=== PATIENT | male | born 1945 | race Caucasian/White ===

== ENCOUNTER 2020-12-18 17:34 | Inpatient (IN) | payer BC, OTHER ==
[~2020-12-18] VITALS: Ht 180.3 cm; Wt 83.2 kg
[2020-12-18] VITALS (13 sets, daily range): BP systolic 87–142; BP diastolic 46–91
--- NOTE | ~2020-12-18 | HC ---
[facility] [place] [address] CONSULTATION Name: HERO GOODWIN Room #: 214-P ADM IN M.R.#: [id number] Admission: 12/18/20 Attend Phys: Rajesh Becker MD Discharge: Date of : 45 Report #: [id number] THIS REPORT FOR: cc: Daniel Wiley MD, Alexander C. MD Smithson,Ricardo Carrillo MD ~ DOC #: [id number] Ricardo Kilpatrick MD DATE OF SERVICE: 12/26/2020 HISTORY OF PRESENT ILLNESS: The patient is a 75-year-old male who had out of hospital cardiac arrest with pulseless, successful resuscitation, was intubated in the field. He has been admitted. 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 He has had problems with tissue necrosis and underwent an I and D by wound care with Urology following as well. He has been able to be extubated. Cardiology was closely involved. He has been diagnosed with a non-Q-wave [place], troponin elevation, status post CPR and defibrillation. Paroxysmal atrial fibrillation, back in atrial fibrillation, unsuccessful AFib ablation. He is transitioning from IV to oral amiodarone. Anticipation is underway for coronary angiography possibly Thursday. We have been consulted from a rehabilitation perspective. PAST MEDICAL HISTORY: Coronary artery disease, chronic diastolic heart failure, paroxysmal atrial fibrillation, hyperlipidemia. MEDICATIONS: Please see the full medication listing. HABITS: As noted. SOCIAL HISTORY: Lives with spouse in [place], 2 steps in. 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 Son here in [place] and daughter apparently lives out of [place], [place]. The patient tends to spend the summer in [place]. is noted to have decreased short-term memory issues per the son. REVIEW OF SYSTEMS: No current complaints of chest pain, shortness of breath or abdominal discomfort. ALLERGIES: No known drug allergies. PHYSICAL EXAMINATION: GENERAL: A 75-year-old male, in no obvious distress. The patient is alert. VITAL SIGNS: Last recorded temperature 97.9, pulse 80, respirations 18, blood pressure 107/77. HEENT: Appeared to be benign. NEUROLOGIC: Cranial nerves are grossly intact. Facies [place] [address] CONSULTATION Name: HERO GOODWIN Room #: 214-P [facility] IN M.R.#: [id number] Admission: 12/18/20 Attend Phys: Rajesh Becker MD Discharge: Date of : 45 Report #: [id number] currently on nasal prong O2 5 liters. His scrotum is dressed with a large dressing in place and he has an indwelling Newman catheter. He has functional range of motion of the upper extremity, strength is grade 4-/5. He is moving lower extremities with some discomfort with his scrotal dressing, is probably a grade 3+/5 to 4-/5. There is some delay in his cognitive processing, but he does follow basic 1-step commands. Functionally, he is mod assist sit to stand, gait with 6 steps mod assist. ASSESSMENT: A 75-year-old white male with the following problem list: 1. Toxic metabolic encephalopathy/probable hypoxic encephalopathy. 2. Out of hospital cardiac arrest, pulseless with successful resuscitation. 3. Acute hypoxic respiratory failure, has been extubated on high dose nasal prong O2. 4. Non-Q-wave myocardial infarction. 5. Paroxysmal atrial fibrillation with unsuccessful atrial fibrillation ablation. 6. Status post right orchiectomy for spermatic cord liposarcoma, he is status post subsequent wound care incision and drainage. 7. Sepsis. PLAN: Note, consideration for coronary angiography. Transitioning from IV to oral amiodarone. Recurrent atrial fibrillation as noted. He does have supportive family that are here and he is willing to work in therapies to try to gradually improve independence. He is a good candidate for an acute in-hospital inpatient rehabilitation stay when medically stabilized, bed available and insurance precertification obtained. We will continue to follow with you. Ricardo Kilpatrick MD DGS/ALL By: [id number] Ricardo Kilpatrick MD /nt
--- NOTE | ~2020-12-18 | EMS ---
[address] [address] EMS Patient Care Report Name: HERO GOODWIN Room #: 245-P ADM IN M.R.#: [id number] Admission: 12/18/20 Attend Phys: Rajesh Becker MD Discharge: Date of : 45 Report #: [id number] THIS REPORT FOR: //name// Report Transmitted: 12/19/2020 06:24 EMS Care Summary [facility] MED-ACT Incident [id number] @ 12/18/2020 16:50 Incident Location [address] [place] [address] [place] [address] Patient WADE GOODWIN Male, 75 Years 1945 Patient [address] [address] [place] [address] [place] [address] Patient History Other,Hypertension (HTN),Atrial Fibrillation, Patient Allergies No known allergies, Patient Medications Atorvastatin, Metoprolol, Toprol, Amiodarone, Chief Complaint Cardiac Arrest Disposition Transported No Lights/[place] Dispatch Reason Chest Pain (Non-Traumatic) Transported To [facility] Narrative Upon EMS arrival the patient was laying supine in his bed with LFD at his side. LFD stated PD had arrived on scene to find the patient on the phone, shortly after PD arrived they stated the patient went unconscious and was not breathing. PD started CPR immediately while the patient was still in bed. D [address] [address] EMS Patient Care Report Name: HERO GOODWIN Room #: 245-P ADM IN James#: [id number] Admission: 12/18/20 Attend Phys: Rajesh Becker MD Discharge: Date of : 45 Report #: [id number] arrived on scene and found the patient to have a pulse and was breathing, they re triaged critical. Approximately two minutes later the patient had several agonal respirations and went apenic. M1134 arrived at the patients side at this time, the patient was moved from the bed to the floor, CPR was immediately started and the defib pads were attached anterior/lateral, the patient was found to be in pulseless VT and was defibrillated at 200J, rhythm and pulse checks were preformed every two minutes for the duration of the CA. Compressors were changed every two minutes for the duration of the CA. The patient was ventilated via BVM with 15 lpm of O2, soon after a size 4 iGel was placed without difficulty with an EtCO2 filter attached by a LFD EMT. IV access was established, 1mg of epinephrine was administered IVP. A total of three defibrillations and one epi were administered prior to ROSC. A strong radial pulse was found and the patient was noted to be breathing spontaneously. V/S and 12 lead were obtained and transmitted to the ED, the patient was not moved for approximately five minutes to prevent an arrhythmia from occurring. The patients BG was noted to be 171mg/dL. The Giancarlo device was placed on the patient and then the tarp. The patient as moved to the cot while continuing ventilation and cardiac monitoring. The patient was carried to the cot without incident. Report was called to [facility]. Once in the back of the MICU, an additional IV was established and a drop in the patients BP was noted, 500cc of NS was administered wide open. Serial 12 leads were taken. The patient would not respond to verbal or painful stimuli, he spontaneously opened his eyes but did not track. The patients RR increase and his ventilations were assisted. He began to gag on the iGel, it was removed immediately, the patient was noted to have spontaneous but inadequate respirations, EMS continued to assist the patients ventilations via BVM. Family stated the patient had a testicle removed last Thursday and was released from the hospital several days ago. They denied the patient having any significant cardiac history. M1134 transported the patient with a LFD EMT bagging the patient en route. The patient was taken to [facility] ED room 12, he was moved to he ED bed via sheet drag without incident, report was given to nursing staff. Initial Vitals @17:11MI Suspected: true @17:30MI Suspected: false @17:11P: 128,R: 21,BP: 157/100,SpO2: 100, @17:21P: 121,R: 20,BP: 99/48,EtCO2: 29,SpO2: 99, @17:25P: 118,R: 20,BP: 137/75,EtCO2: 38,SpO2: 100, @17:29P: 118,R: 20,BP: 184/146,EtCO2: 32,SpO2: 95, @17:08P: 127,R: 19,BP: 182/116,Pain: 0/10,Temp: 97.4F,Glucose: 171,EtCO2: 36,SpO2: 100, Assessments @16:58MENTAL:Unresponsive,SKIN:Cold,Cyanotic,Pale,HEENT:Eyes: Left Pupil: 4-mm,Eyes: Right Pupil: 4-mm,LUNG SOUNDS:ABDOMEN:PELVIS//GI:EXTREMITIES:PULSE:Radial: Absent,Carotid: [facility] [address] [place] [address] EMS Patient Care Report Name: HERO GOODWIN Room #: 245-P ADM IN M.R.#: [id number] Admission: 12/18/20 Attend Phys: Rajesh Becker MD Discharge: Date of : 45 Report #: [id number] Absent,NEURO:@17:15MENTAL:SKIN:HEENT:Eyes: Left Pupil: 4-mm,Eyes: Right Pupil: 4-mm,LUNG SOUNDS:ABDOMEN:PELVIS//GI:EXTREMITIES:PULSE:Radial: 2+ Normal,NEURO: Impression Cardiac arrest Procedures @17:00Surgical Mask on PatientResponse: Unchanged@PTAResponse: ImprovedSucceeded@PTAResponse: Unchanged@16:58Response: UnchangedSucceeded@16:59Response: UnchangedFailed@17:01Response: UnchangedFailed@17:04Response: ImprovedSucceeded@16:58Oxygen FlowRate: 15 Device: Bag Valve Mask (BVM) Response: UnchangedSucceeded@17:00iGEL Complications: None,Response: UnchangedSucceeded@17:01Epinephrine 1:10 - 1 Milliliters (ml) - Intravenous (IV)Response: Improved@17:00Saline Lock 10cc (18 ga) Site: Forearm-RightResponse: UnchangedSucceeded@17:1112-Lead ECGResponse: UnchangedSucceeded@17:2812-Lead ECGResponse: UnchangedSucceeded@17:11ECG TransmittedResponse: Unchanged@17:19Normal Saline (.9% NaCl) 500cc (18 ga) Site: Forearm-LeftResponse: UnchangedSucceeded Timeline [employer],Response: ImprovedSucceeded, [employer],Response: Unchanged 16:48,Call Received 16:48,Psap Call 16:50,Dispatched 16:50,En Route 16:55,On Scene 16:56,At Patient 16:58,Oxygen FlowRate: 15 Device: Bag Valve Mask (BVM) Response: UnchangedSucceeded, 16:58,Response: UnchangedSucceeded, 16:59,Response: UnchangedFailed, 17:00,Surgical Mask on Patient,Response: Unchanged 17:00,iGEL Complications: None,,Response: UnchangedSucceeded, 17:00,Saline Lock 10cc 18 ga Site: Forearm-Right,Response: UnchangedSucceeded, 17:01,Response: UnchangedFailed, 17:01,Epinephrine 1:10 - 1 Milliliters (ml) - Intravenous (IV),Response: Improved 17:04,Response: ImprovedSucceeded, 17:08,BP: 182/116 M,PULSE: 127,RR: 19 R,SPO2: 100 Ox,ETCO2: 36 ,B,PAIN: 0,GCS: , 17:11,12-Lead ECG,Response: UnchangedSucceeded, 17:11,BP: / M,PULSE: ,RR: R,SPO2: Ox,ETCO2: ,BG: ,PAIN: ,GCS: , 17:11,BP: 157/100 M,PULSE: 128,RR: 21 R,SPO2: 100 Ox,ETCO2: ,BG: ,PAIN: ,GCS: , 17:11,ECG Transmitted,Response: Unchanged [address] [address] EMS Patient Care Report Name: HERO GOODWIN Room #: 245-P ADM IN M.R.#: [id number] Admission: 12/18/20 Attend Phys: Rajesh Becker MD Discharge: Date of : 45 Report #: [id number] 17:19,Normal Saline (.9% NaCl) 500cc 18 ga Site: Forearm-Left,Response: UnchangedSucceeded, 17:21,Depart Scene 17:21,BP: 99/48 M,PULSE: 121,RR: 20 R,SPO2: 99 Ox,ETCO2: 29 ,BG: ,PAIN: ,GCS: , 17:25,BP: 137/75 M,PULSE: 118,RR: 20 R,SPO2: 100 Ox,ETCO2: 38 ,BG: ,PAIN: ,GCS: , 17:28,12-Lead ECG,Response: UnchangedSucceeded, 17:29,BP: 184/146 M,PULSE: 118,RR: 20 R,SPO2: 95 Ox,ETCO2: 32 ,BG: ,PAIN: ,GCS: , 17:29,At Destination 17:30,BP: / M,PULSE: ,RR: R,SPO2: Ox,ETCO2: ,BG: ,PAIN: ,GCS: , 18:07,Call Closed Disclaimer v1.1 Copyright 2020 [employer] This EMS Care Summary contains data elements from the applicable legal record (which may be displayed differently). It is designed to provide pertinent information for the following purposes: continuity of care, clinical quality, and state data reporting. The complete legal record is available to ED staff and administrators of the receiving hospital in [employer] Patient Tracker. All data is provided "as is."
--- NOTE | 2020-12-18 17:38 | NUR ---
UPON ARRIVAL PT ASSIST W VENT W BAG, 1741 SUCCINYCHOLINE 80MG IV VIA R FOREARM. 1743 20G L WRIST W LAB DRAW AND BLOOD CULTURES, 174 INTUBATION 26 @ TEETH, 1746 PROPOFOL 30MG IV VIA R FOREARM, 1752 OG TUBE 65 @ LIP, 1753 XRAY IN ROOM. 1800 PROPOFOL 40MG IV VIA R FOREARM.
[2020-12-18 17:55] LABS: ABSOLUTE NEUTROPHILS 10.1 thou/uL (1.4-8.2); BASOPHILS 0.4 % (0.0-2.0); EOSINOPHILS 0.9 % (0.0-3.0); HEMATOCRIT 33.6 % (42.0-52.0); HEMOGLOBIN 11.3 gm/dL (14.0-18.0); LYMPHOCYTES 10.6 % (24.0-44.0); MCH 32.6 pg (26.0-34.0); MCHC 33.5 g/dL (28.0-37.0); MCV 97.2 fL (80.0-100.0); MONOCYTES 8.1 % (1.0-8.0); PLATELET COUNT 280 thou/uL (150-400); RBC 3.46 mil/uL (4.50-6.00); RDW 13.5 % (10.5-14.5); WBC 12.7 thou/uL (4.0-11.0)
[2020-12-18 18:04] LABS: CALCIUM 8.2 mg/dL (8.5-10.1); CREATININE 1.5 mg/dL (0.7-1.3); POTASSIUM 3.6 mmol/L (3.5-5.1)
[2020-12-18 18:06] LABS: BE(vivo) -8.4 mmol/L (-2 to +3); HCO3 17.6 mmol/L (22.0-26.0); PCO2 38.2 mmHg (35.0-45.0); PO2 81.3 mmHg (80.0-100.0); pH 7.282 (7.360-7.450); sO2 94.7 % (92.0-98.0)
[2020-12-18 18:14] LABS: ALBUMIN 2.9 g/dL (3.4-5.0); TOTAL BILIRUBIN 0.6 mg/dL (0.2-1.0); TOTAL PROTEIN 6.3 g/dL (6.4-8.2); TROPONIN-I 0.07 ng/mL (<0.06)
--- NOTE | 2020-12-18 18:20 | EKG ---
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
--- NOTE | 2020-12-18 21:20 | NUR ---
This RN spoke to the urologist instrumentation and control technician, Dr. Keys. Doctor familiar with and has seen patient recently at [facility]. Discussed patient and scrotum assessment. Orders to place bennett catheter. Physician to see patient tomorrow.
--- NOTE | 2020-12-18 21:21 | NUR ---
This RN spoke to Dr. Ryan regarding consult. Not indicated for hypothermia protocol at this time. Orders received. Physician to see patient in the morning. Will continue to monitor.
[2020-12-19] VITALS (43 sets, daily range): BP systolic 80–118; BP diastolic 43–59
--- NOTE | 2020-12-19 01:33 | NUR ---
Pt admitted 2020 and family, pt's Manuela and pt's son Thien in room with pt after pt transfered into room 245, both and son answered admission questions, pt arrived in ICU with no personal belongings and family directed to take home all belongings from the ER and they agreed, pt has surgical site, glued, on right groin area and there is a lesion on scrotum, photos taken, teaching done with family r/t medications, plan of care, falls, restraints, intubation and ventilation, visiting hours, ICU, and plans for discharge planning and they actively listened and participated. Pt pain addressed and fentanyl infusing and pt appears more comfortable at present. Pt resting in no distress.
[2020-12-19 03:03] LABS: HEMATOCRIT 30.2 % (42.0-52.0); MCH 32.3 pg (26.0-34.0); MCHC 33.1 g/dL (28.0-37.0); MCV 97.4 fL (80.0-100.0); RBC 3.09 mil/uL (4.50-6.00); RDW 13.6 % (10.5-14.5); WBC 12.2 thou/uL (4.0-11.0)
[2020-12-19 03:19] LABS: APTT 22.5 Seconds (24.5-32.8); INR 1.03; PROTIME 11.2 Seconds (10.5-12.1)
[2020-12-19 03:33] LABS: ALBUMIN 2.7 g/dL (3.4-5.0); CALCIUM 8.2 mg/dL (8.5-10.1); MAGNESIUM 2.2 mg/dL (1.8-2.4); POTASSIUM 4.4 mmol/L (3.5-5.1); TOTAL BILIRUBIN 0.5 mg/dL (0.2-1.0); TOTAL PROTEIN 5.8 g/dL (6.4-8.2)
[2020-12-19 03:35] LABS: TROPONIN-I 16.57 ng/mL (<0.06)
--- NOTE | 2020-12-19 08:50 | NUR ---
Cm assisted beatriz to found his room, vol showed her how to get to the icu. Intro to cm and dcp. Noted was anxious, frazzled and unable answer some question about dpoa/hc. Active listen and education and support for her to rest and ask for help if needed. she reported live at home, 1 step in from garage, flight stairs up to bedrooms and flight stair to basement. he independent before he went to another hospital for 3 night, that hospital over [address] . He was at [facility] then came home showered and ended up there at [facility]. 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 Daughter going to come in from [place] today. will cont following as needed for dc needs.
--- NOTE | 2020-12-19 13:00 | NUR ---
PT HAVING TEMPERATURE OF 100F. DR. KIM CALLED FOR ORDER FOR IVF MAINTENANCE AND TYLENOL. DR. KIM SAID HE WILL PUT THE ORDERS IN. REPORT GIVEN TO ENRIQUETA SALVADOR.
--- NOTE | 2020-12-19 13:17 | 2DMMODE ---
[facility] [place] [address] 2 D/M-MODE ECHOCARDIOGRAM Name: EHRO GOODWIN Room #: 245-P ADM IN M.R.#: [id number] Admission: 12/18/20 Attend Phys: Rajesh Becker MD Discharge: Date of : 45 Report #: [id number] THIS REPORT FOR: cc: Daniel Wiley MD, Alexander C. MD Lundgren, Craig H. MD [facility] ~ APPROVED REPORT Study performed: 12/19/2020 08:53:45 EXAM: Comprehensive 2D, Doppler, and color-flow Echocardiogram Patient Location: ICU Room #: [facility] Status: routine BSA: 1.91 HR: 67 bpm BP: 90/45 mmHg Rhythm: NSR Other Information Study Quality: Good/patient on vent Indications Status post cardiac arrest. Hx: Afib, CAD, PCI. 2D Dimensions RVDd: 39.86 mm IVSd: 12.51 (7-11mm) LVOT Diam: 20.65 (18-24mm) LVDd: 51.61 mm PWd: 12.70 (7-11mm) Ascending Ao: 36.71 (22-36mm) LVDs: 34.04 (25-40mm) Left Atrium: 46.80 (27-40mm) Aortic Root: 41.95 mm Volumes Left Atrial Volume (Systole) Single Plane 4CH: 76.49 mL Single Plane 2CH: 78.88 mL Aortic Valve AoV Peak Noble.: 1.95 m/s AO Peak Gr.: 15.15 mmHg LVOT Max P.98 mmHg AO Mean Gr.: 9.02 mmHg AO V2 Mean: 1.43 m/s LVOT Max V: 1.58 m/s [facility] [address] [place] [address] 2 D/M-MODE ECHOCARDIOGRAM Name: HERO GOODWIN Room #: 245-P [facility] IN [facility].#: [id number] Admission: 12/18/20 Attend Phys: Rajesh Becker MD Discharge: Date of : 45 Report #: [id number] AO V2 VTI: 41.55 cm EFRA Vmax: 2.72 cm2 Mitral Valve E/A Ratio: 0.8 MV Decel. Time: 278.03 ms MV E Max Noble.: 0.48 m/s MV A Noble.: 0.63 m/s MV PHT: 80.63 ms IVRT: 115.34 ms Pulmonary Valve PV Peak Noble.: 1.05 m/s PV Peak Gr.: 4.42 mmHg Pulmonary Vein P Vein S: 0.78 m/s P Vein D: 0.65 m/s P Vein S/D Ratio: 1.20 Tricuspid Valve TR Peak Noble.: 2.46 m/s RAP Estimate: 5.00 mmHg TR Peak Gr.: 24.15 mmHg PA Pressure: 29.00 mmHg Left Ventricle The left ventricle is normal size. There is normal LV segmental wall motion. Mild concentric left ventricular hypertrophy. Left ventricular systolic function is normal. LVEF is 60-65%. Mild diastolic dysfunction Right Ventricle The right ventricle is normal size. The right ventricular systolic function is normal. Atria Left atrium is dilated. The right atrium size is normal. Aortic Valve The aortic valve is mildly sclerotic. Mild aortic regurgitation. There is no aortic valvular stenosis. Mitral Valve The mitral valve is normal in structure. Trace mitral regurgitation. No evidence of mitral valve stenosis. Tricuspid Valve [facility] [address] [place] [address] 2 D/M-MODE ECHOCARDIOGRAM Name: HERO GOODWIN Room #: 245-P ADM IN M.R.#: [id number] Admission: 12/18/20 Attend Phys: Rajesh Becker MD Discharge: Date of : 45 Report #: [id number] The tricuspid valve is normal in structure. Trace tricuspid regurgitation. Estimated PAP is 30mmHg. Pulmonic Valve The pulmonary valve is normal in structure. Mild pulmonic regurgitation. Great Vessels The sinuses are mildly dilated (4.2cm). The ascending aorta is normal in size. IVC is normal in size and collapses <50% with inspiration. Pericardium There is no pericardial effusion. <Conclusion> Left ventricular systolic function is normal. There is normal LV segmental wall motion. LVEF is 60-65%. Mild diastolic dysfunction The aortic valve is mildly sclerotic. Mild aortic regurgitation, no stenosis. The mitral valve is normal in structure. Trace mitral regurgitation. Trace tricuspid regurgitation. Estimated pulmonary artery pressure of 30mmHg. There is no pericardial effusion. <ELECTRONICALLY SIGNED> By: Mariano Cool MD, FACC 12/19/201316 16 16 Mariano Cool MD, FACC /INF
--- NOTE | 2020-12-19 14:44 | EKG ---
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: JASSI : 1945 Requested By: Mariano Cool Order Number: [id number] MD: Sohail James Measurements Intervals [place] Rate: 66 P: -28 MI: 158 QRS: 54 QRSD: 118 T: 117 QT: 543 QTc: 570 Interpretive Statements Sinus rhythm Nonspecific intraventricular conduction delay Low voltage, precordial leads Abnrm T, consider ischemia, anterolateral lds Compared to ECG 12/18/2020 17:35:42 Intraventricular conduction delay now present Low QRS voltage now present Possible ischemia now present Sinus tachycardia no longer present Incomplete right bundle-branch block no longer present T-wave abnormality no longer present Electronically Signed On 12-19-2020 14:43:57 CDT by Sohail James [email or web address] <ELECTRONICALLY SIGNED> By: Sohail James MD, [facility] 12/19/20 1443 0 08 Sohail James MD, [facility] /EPI
[2020-12-19 16:20] LABS: HEMATOCRIT 32.7 % (42.0-52.0); HEMOGLOBIN 10.9 gm/dL (14.0-18.0); MCH 32.6 pg (26.0-34.0); MCHC 33.3 g/dL (28.0-37.0); MCV 97.9 fL (80.0-100.0); RBC 3.34 mil/uL (4.50-6.00); WBC 12.5 thou/uL (4.0-11.0)
--- NOTE | 2020-12-19 17:45 | HC ---
[facility] [place] [address] CONSULTATION Name: HERO GOODWIN Room #: 245-P ADM IN M.R.#: [id number] Admission: 12/18/20 Attend Phys: Rajesh Becker MD Discharge: Date of : 45 Report #: [id number] THIS REPORT FOR: cc: Daniel Wiley MD, Alexander C. MD Lundgren,Mariano Chung MD [facility] ~ DOC #: [id number] Mariano Cool MD [facility] DATE OF SERVICE: 12/18/2020 REASON FOR CONSULTATION: Status post out of hospital arrest. HISTORY OF PRESENT ILLNESS: The patient is a 75-year-old gentleman with a complicated history including paroxysmal atrial fibrillation with unsuccessful atrial fibrillation ablation a number of years ago. He has a history of coronary artery disease with prior LAD stenting and dyslipidemia. Around September of this year, he was found to have a scrotal mass thought to be a lipoma. 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 He then about 10 days ago had a more wide excision of this lesion and was discharged to home following same day surgery. About 5 days after that surgery, he developed groin swelling and bruising. He had occasional lightheadedness and was taken back to [facility] where he was found to be severely orthostatic and anemic with a hemoglobin of around 10-11. It was thought that his orthostasis was related to blood loss and a groin scrotal hematoma. No surgical intervention was undertaken. I have discussed this history with Dr. Daniel Wiley who saw him during his [facility] hospitalization. He did not receive transfusion therapy, was placed on midodrine and seemed to be doing well without further orthostasis. I was told cardiac enzymes were normal and an echocardiogram prior to discharge earlier today was normal. After getting home, he went to take a shower, he felt a little lightheaded and laid down on the ground and propped his feet up. He called his son about 45 minutes later and complained of shortness of breath and chest pain with inspiration. His son over the phone told him to call 911, which he did and at some point in the intervening timeframe, he became unconscious. The downtime was uncertain. When paramedics arrived CPR was started. He received one defibrillation for ventricular fibrillation. He regained spontaneous circulation and was breathing on his own. He presented to the Emergency Department where he was intubated to protect his airway. He is currently comatose. This history is provided by both Dr. Daniel Wiley and family. His presenting EKG was similar to prior tracings demonstrating a right ventricular conduction delay without acute ST or T-wave changes. Hemoglobin is 11.3 and similar to what was described on discharge from [facility] earlier today. [facility] [address] [place] [address] CONSULTATION Name: HERO GOODWIN Room #: 245-P ADM IN M.R.#: [id number] Admission: 12/18/20 Attend Phys: Rajesh Becker MD Discharge: Date of : 45 Report #: [id number] There are no known drug allergies. HOME MEDICINES: Include amiodarone 200 mg daily, baby aspirin, atorvastatin 40 mg daily, Pepcid, metoprolol succinate 50 mg daily, Savaysa 60 mg daily, which has been unheld over the past 4-5 days. He was also placed on midodrine 10 mg twice daily at the time of discharge from [facility] earlier today. His past history and medical records have been reviewed and include a history of lithotripsy, coronary artery disease with LAD stenting. He had relook coronary angiography in 2017 when he presented with heart failure and was found to have a widely patent proximal LAD stent and otherwise mild plaquing in his coronary vasculature. His heart failure was thought to be probably volume related with varying degrees of mitral insufficiency. This problem has been well controlled with dietary salt management and rare use of diuretics. SOCIAL HISTORY: He is . He has a 6-pack-year smoking history. Drinks occasional alcoholic beverage. FAMILY HISTORY: Unknown. REVIEW OF SYSTEMS: Not obtainable. PHYSICAL EXAMINATION: GENERAL: Reveals a comatose gentleman. VITAL SIGNS: Blood pressure is 130/90, heart rate of 100 and regular. He is afebrile, temperature is 94.1 degrees. LYMPHATICS: There are neither xanthelasma, subcutaneous xanthomata, oral mucosa, digital cyanosis or kyphoscoliosis present. CHEST: Clear to auscultation and percussion. CARDIAC: Regular rate and rhythm with normal S1, S2. ABDOMEN: Soft and nontender. There is scrotal swelling and ecchymosis. EXTREMITIES: Without cyanosis, clubbing or edema. Radial pulses are 2+. NEUROLOGIC: He is comatose. LABORATORY DATA: Sodium is 140, potassium 3.6, creatinine 1.5, AST 150. Troponin 0.07, magnesium 2.0. White count 12.7, hemoglobin 11, hematocrit 33, platelet count 280. Chest x-ray demonstrates perihilar infiltrates and left basilar infiltrate. IMPRESSION: 1. Out of hospital cardiac arrest. 2. Scrotal liposarcoma with recent excision. 3. Anemia. 4. Chronic diastolic heart failure. 5. History of paroxysmal atrial fibrillation. [facility] [address] [place] [address] CONSULTATION Name: HERO GOODWIN Room #: 245-P ADM IN M.R.#: [id number] Admission: 12/18/20 Attend Phys: Rajesh Becker MD Discharge: Date of : 45 Report #: [id number] 6. Dyslipidemia. 7. Hypercoagulable. RECOMMENDATIONS: 1. CT of head. 2. CT angiography of chest. 3. Echocardiogram with Doppler. 4. Serial cardiac enzymes. 5. Hypothermia protocol; neurologic assessment. Further thoughts and plans will be forthcoming based on this evaluation and based on his clinical course. I have had extensive discussions with the patient's family, primary physician as well as ED physician 95cc time Mariano Cool MD [facility] CHL/SWA <ELECTRONICALLY SIGNED> By: Mariano Cool MD, [facility] 12/19/20 1745 1825 0117 Mariano Cool MD, [facility] /nt
--- NOTE | 2020-12-19 19:17 | NUR ---
Shift change report recieved and pt care assumed, all lines traced, pt resting in bed, opens eyes to voice, makes and maintains eye contact, appears comfortable, nodes head to questions and stated still has pain in chest and pt wrote on paper question What happened? pt informed he had CPR yesterday and that causes chest trauma that could lead to pain, current pain medication is Fentanyl gtt running at 80, pt appears comfortable and returns to sleep with stimulis is removed.
[2020-12-19 19:25] LABS: CALCIUM 8.1 mg/dL (8.5-10.1); CREATININE 1.1 mg/dL (0.7-1.3); POTASSIUM 4.4 mmol/L (3.5-5.1)
[2020-12-19 19:31] LABS: ALBUMIN 2.6 g/dL (3.4-5.0); TOTAL BILIRUBIN 0.8 mg/dL (0.2-1.0)
[2020-12-20] VITALS (47 sets, daily range): BP systolic 84–140; BP diastolic 39–79
[2020-12-20 05:22] LABS: BE(vivo) -1.5 mmol/L (-2 to +3); HCO3 24.2 mmol/L (22.0-26.0); PCO2 45.2 mmHg (35.0-45.0); PO2 76.5 mmHg (80.0-100.0); pH 7.347 (7.360-7.450); sO2 94.6 % (92.0-98.0)
[2020-12-20 06:50] LABS: ABSOLUTE NEUTROPHILS 7.7 thou/uL (1.4-8.2); BASOPHILS 0.4 % (0.0-2.0); EOSINOPHILS 0.7 % (0.0-3.0); HEMATOCRIT 27.4 % (42.0-52.0); HEMOGLOBIN 9.1 gm/dL (14.0-18.0); LYMPHOCYTES 6.9 % (24.0-44.0); MCH 32.2 pg (26.0-34.0); MCHC 33.1 g/dL (28.0-37.0); MCV 97.2 fL (80.0-100.0); MONOCYTES 8.5 % (1.0-8.0); PLATELET COUNT 227 thou/uL (150-400); POLYS 83.5 % (36.0-66.0); RBC 2.82 mil/uL (4.50-6.00); WBC 9.2 thou/uL (4.0-11.0)
[2020-12-20 07:01] LABS: ALBUMIN 2.2 g/dL (3.4-5.0); CALCIUM 7.5 mg/dL (8.5-10.1); CREATININE 0.9 mg/dL (0.7-1.3); MAGNESIUM 2.1 mg/dL (1.8-2.4); TOTAL BILIRUBIN 0.6 mg/dL (0.2-1.0); TOTAL PROTEIN 5.3 g/dL (6.4-8.2)
--- NOTE | 2020-12-20 08:12 | EKG ---
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: JASSI : 1945 Requested By: Mariano Cool Order Number: [id number] MD: Mariano Cool Measurements Intervals [place] Rate: 127 P: SC: QRS: 29 QRSD: 118 T: 138 QT: 369 QTc: 537 Interpretive Statements Atrial fibrillation Incomplete right bundle branch block Repol abnrm suggests ischemia, lateral leads Prolonged QT interval compared to ECG 12/19/2020 08:01:43 Atrial fibrillation has replaced sinus rhythm Electronically Signed On 12-20-2020 8:12:24 CDT by Mariano Cool [email or web address] <ELECTRONICALLY SIGNED> By: Mariano Cool MD, [facility] 12/20/2012 5 5 Mariano Cool MD, [facility] /EPI
--- NOTE | 2020-12-20 09:00 | NUR ---
ASSUMMED CARE OF THIS PATIENT FROM JONO ROBISON AT 0714 THIS AM. PATIENT TRANSFERED FROM 245 TO 249 VIA BED. PATIENT NOTED TO BE IN A FIB WITH RVR WHEN ATTACHED TO THE MONITOR. DR ULLOA IN AND AWARE. ORDERS NOTED. PATIENT CONVERTED TO SR DURING THE AMIODARONE INFUSION, WILL CONTINUE TO MONITOR.
[2020-12-20 12:03] LABS: BE(vivo) -2.4 mmol/L (-2 to +3); HCO3 23.3 mmol/L (22.0-26.0); PCO2 43.9 mmHg (35.0-45.0); pH 7.343 (7.360-7.450); sO2 94.9 % (92.0-98.0)
--- NOTE | 2020-12-20 12:30 | NUR ---
1000 BEDSIDE EEG. PATIENT IS RESPONSIVE AND WILL FOLLOW COMMANDS. 1100 PROPOFOL TURNED OFF FOR EEG. PATIENT THEN PLACED ON CPAP WITH ABG'S AT ONE HOUR. 1145 DR INGRAM ROUNDED ON PATIENT AND NOW AWAITING UROLOGY TO SEE IN REGARDS TO POTENTIAL DEBRIDMENT OF AREA. PATIENT REMAINS ON CPAP UNTIL SEEN BY UROLOGY.
--- NOTE | 2020-12-20 19:54 | NUR ---
PATIENT PROGRESSING SLOWLY TOWARDS OUTCOME GOALS. PLACED BACK ON VENT AFTER BEING SEEN BY UROLOGY FOR POTENTIAL STROTAL DEBRIDMENT TOMORROW. DR STONE THROUGH THE UNIT AT [facility] 1600 AND AWARE OF THE POTENTIAL FOR OR TOMORROW. OG NOTED TO BE PARTIALLY OUT AND ATTEMPTED TO REINSERT BUT UNABLE. ATTEMPTED TO REINSERT NEW OGT BUT PATIENT IS UNCOOPERATIVE. MONITOR REMAINS NSR. WILL CONTINUE TO MONITOR.
--- NOTE | 2020-12-20 20:00 | NUR ---
#16 FR OG TUBE INSERTED. KUB ORDERED FOR PLACEMENT
[2020-12-21] VITALS (42 sets, daily range): BP systolic 89–128; BP diastolic 43–68
--- NOTE | 2020-12-21 02:00 | NUR ---
PT BECAME VERY AGITATED AND ATTEMPTED TO PULL AT ET TUBE. ATIVAN 1 MG IV GIVEN PER ORDER . WILL CONT TO MONITOR
[2020-12-21 05:38] LABS: HEMATOCRIT 25.1 % (42.0-52.0); HEMOGLOBIN 8.3 gm/dL (14.0-18.0); MCH 32.6 pg (26.0-34.0); MCHC 33.1 g/dL (28.0-37.0); MCV 98.5 fL (80.0-100.0); RBC 2.55 mil/uL (4.50-6.00); RDW 13.2 % (10.5-14.5); WBC 8.8 thou/uL (4.0-11.0)
--- NOTE | 2020-12-21 06:00 | NUR ---
PT REMAINS INTUBATED AND SEDATED WITH FENTANYL AND PRECEDEX GTTS. HAS BEEN SLEEPING SINCE ATIVAN GIVEN. BATHED. UO 500 CC THIS SHIFT. PT MAY GO TO OR TODAY FOR WOUND DEBREDMENT. REMAINS NPO PROGRESSING TOWARD GOALS. WILL CONT TO MONITOR
[2020-12-21 06:12] LABS: CALCIUM 7.6 mg/dL (8.5-10.1); CREATININE 1.2 mg/dL (0.7-1.3); POTASSIUM 4.1 mmol/L (3.5-5.1)
--- NOTE | 2020-12-21 07:24 | EKG ---
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 : 1945 Requested By: Mariano Cool Order Number: [id number] MD: Sohail James Measurements Intervals [place] Rate: 82 P: 31 MI: 182 QRS: 19 QRSD: 123 T: 132 QT: 498 QTc: 582 Interpretive Statements Sinus rhythm Atrial premature complex Probable left atrial enlargement Nonspecific intraventricular conduction delay Anteroseptal infarct, age indeterminate Lateral leads are also involved Compared to ECG 12/20/2020 07:36:35 Atrial premature complex(es) now present Electronically Signed On 12-21-2020 7:24:04 CDT by Sohail James [email or web address] <ELECTRONICALLY SIGNED> By: Sohail James MD, FAC 12/21/2024 5 5 Sohail James MD, [facility] /EPI
--- NOTE | 2020-12-21 10:58 | NUR ---
Chart review, discussed during am rounds and los. Pt going today for surgery. and son at bedside. Pt remains on vent. No anticipated dc through weekend. Will cont. following as needed for dc needs.
--- NOTE | 2020-12-21 11:00 | NUR ---
RT UPPER ARM PICC BY IV TEAM AT THE BEDSIDE WITHOUT INCIDENT. PCXR DONE FOR PLACEMENT.
--- NOTE | 2020-12-21 11:01 | NUR ---
VAT CONSULTED FOR PICC. PT'S LABS,MEDS,HX,ORDER AND CONSENT VERIFIED. CAMILA BASILIC WAS WIDELY PATENT, VESSEL MEASURED 40%. 5FR TL POWER PICC TRIMMED TO 48CM INSERTED TO 1CM EXTERNAL X1 STICK. DISCUSSED BENEFITS AND RISK WITH FAMILY,VERBALIZED UNDERSTANDING. STAT CXR ORDERED
--- NOTE | 2020-12-21 13:00 | NUR ---
1130 PATIENT AGITATED AND ATTEMPTING TO LOWER HEAD TO HANDS TO REMOVE ETT. PRECEDEX INCREASED EARLIER FOR LINE INSERTION, DR STONE NOTIFIED AND PROPOFOL ADDED. 1300 PATIENT IS NOW RESTING QUIETLY.
--- NOTE | 2020-12-21 16:43 | NUR ---
1515 DR DUNCAN PREFOMED I/D OF SCROTAL LESION WITH CULTURE AT THE BEDSIDE WITHOUT INCIDENT.
--- NOTE | 2020-12-21 19:45 | NUR ---
PATIENT IS SLOWLY PROGRESSING TOWARDS OUTCOME GOALS. REMAINS SEDATED AND RIDING THE VENT. VSS. MONITOR SHOWING NSR.
[2020-12-22] VITALS (29 sets, daily range): BP systolic 84–152; BP diastolic 53–82
--- NOTE | 2020-12-22 03:18 | NUR ---
Pt is back to Afib, rate < 100 BPM per monitor. EKG obained, no acute changes. Will continue to monitor him for now.
[2020-12-22 05:24] LABS: HEMATOCRIT 28.5 % (42.0-52.0); HEMOGLOBIN 9.3 gm/dL (14.0-18.0); MCH 32.1 pg (26.0-34.0); MCHC 32.6 g/dL (28.0-37.0); MCV 98.5 fL (80.0-100.0); RBC 2.89 mil/uL (4.50-6.00); RDW 13.8 % (10.5-14.5); WBC 15.2 thou/uL (4.0-11.0)
--- NOTE | 2020-12-22 05:30 | NUR ---
Pt is converting to NSR around. BP hasimproved afer turns down sedation. Continue to monitor him closely.
--- NOTE | 2020-12-22 05:30 | NUR ---
Pt is converting to NSR. BP has improved since turn down on sedation. Continue to monitor him closely.
[2020-12-22 05:39] LABS: CALCIUM 7.6 mg/dL (8.5-10.1); CREATININE 0.9 mg/dL (0.7-1.3); POTASSIUM 4.4 mmol/L (3.5-5.1)
--- NOTE | 2020-12-22 09:52 | EKG ---
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1945 Requested By: Mariano Cool Order Number: [id number] MD: Sohail James Measurements Intervals [place] Rate: 80 P: MA: QRS: 18 QRSD: 113 T: 145 QT: 443 QTc: 512 Interpretive Statements Atrial fibrillation Incomplete right bundle branch block Compared to ECG 12/21/2020 07:16:06 Incomplete right bundle-branch block now present Early repolarization now present Possible ischemia now present Sinus rhythm no longer present Atrial premature complex(es) no longer present Intraventricular conduction delay no longer present Myocardial infarct finding no longer present Electronically Signed On 12-22-2020 9:52:48 CDT by Sohail James [email or web address] <ELECTRONICALLY SIGNED> By: Sohail James MD, [facility] 12/22/20 0952 015 015 Sohail James MD, [facility] /EPI
--- NOTE | 2020-12-22 09:53 | EKG ---
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1945 Requested By: Mariano Cool Order Number: [id number] MD: Sohail James Measurements Intervals [place] Rate: 97 P: 44 IN: 174 QRS: 23 QRSD: 112 T: 118 QT: 355 QTc: 451 Interpretive Statements Sinus rhythm Incomplete right bundle branch block Low voltage, precordial leads Nonspecific T abnormalities, lateral leads Compared to ECG 12/22/2020 01:51:53 Low QRS voltage now present T-wave abnormality now present Atrial fibrillation no longer present Early repolarization no longer present Possible ischemia no longer present Prolonged QT interval no longer present Electronically Signed On 12-22-2020 9:53:19 CDT by Sohail James [email or web address] <ELECTRONICALLY SIGNED> By: Sohail James MD, [facility] 12/22/20 0953 0751 0751 Sohail James MD, [facility] /EPI
[2020-12-22 12:57] LABS: BE(vivo) -4.3 mmol/L (-2 to +3); HCO3 21.3 mmol/L (22.0-26.0); PCO2 41.5 mmHg (35.0-45.0); PO2 74.6 mmHg (80.0-100.0); sO2 94.1 % (92.0-98.0)
[2020-12-22 12:58] LABS: pH 7.329 (7.360-7.450)
--- NOTE | 2020-12-22 13:50 | NUR ---
CALLED DR. STONE, RE ABG AND WEANING TRIAL RESULTS. ORDERS GIVEN. PT EXTUBATED PER RT. 40% FACE SHIELD. PT CONVERSING AND ORIENTED TO PERSON AND TIME. REORIENTED TO PLACE. RATES PAIN 1 OF 10 AND TOLORABLE.
--- NOTE | 2020-12-22 18:36 | NUR ---
END OF SHIFT NOTE. EXTUBATED THIS AFTERNOON. PT FEELS A SENSE OF DOOM. EMOTIONAL SUPPORT GIVEN. DSG CHANGE TO SCROTUM DONE. VOICE RASPY, NO ICE FOR NOW.
[2020-12-23] VITALS (29 sets, daily range): BP systolic 99–137; BP diastolic 60–83
[2020-12-23 06:01] LABS: ABSOLUTE NEUTROPHILS 13.4 thou/uL (1.4-8.2); BASOPHILS 0.2 % (0.0-2.0); HEMATOCRIT 27.3 % (42.0-52.0); HEMOGLOBIN 9.1 gm/dL (14.0-18.0); LYMPHOCYTES 3.5 % (24.0-44.0); MCH 32.2 pg (26.0-34.0); MCHC 33.2 g/dL (28.0-37.0); MCV 96.9 fL (80.0-100.0); MONOCYTES 8.7 % (1.0-8.0); POLYS 87.6 % (36.0-66.0); RBC 2.82 mil/uL (4.50-6.00); RDW 14.1 % (10.5-14.5); WBC 15.3 thou/uL (4.0-11.0)
[2020-12-23 06:07] LABS: PLATELET COUNT 335 thou/uL (150-400)
[2020-12-23 06:16] LABS: ALBUMIN 2.1 g/dL (3.4-5.0); CALCIUM 7.6 mg/dL (8.5-10.1); CREATININE 0.9 mg/dL (0.7-1.3); MAGNESIUM 2.3 mg/dL (1.8-2.4); POTASSIUM 3.8 mmol/L (3.5-5.1); TOTAL BILIRUBIN 0.5 mg/dL (0.2-1.0); TOTAL PROTEIN 5.2 g/dL (6.4-8.2)
--- NOTE | 2020-12-23 17:00 | NUR ---
Spoke with Dr Eugenio MD states he is not in the hospital right now but when he got to a computer he was going to dc the vancomycin and levaquin per Dr. Yañez's courtesy input due to a prolonged QT interval.
--- NOTE | 2020-12-23 18:16 | NUR ---
PT PROGRESSING TOWARDS GOALS. REMAIN ON 5L NASAS CANNULA. GOOD COUGH EFFORT. YAUNKAR AT BEDSIDE. DRESSING CHANGE TO SCROTOM AFTER PREMEDICATION. PT TOLORATED WELL. SITE BEEFY RED. BROWN DRAINAGE ON OLD PACKING. SAT OOB IN CHAIR WITH ASSIST OF TWO. COULD PROBABLY BENEFIT FROM PT/OT. LESS ANXIOUS THIS AFTERNOON. MEDICATED X 2 WITH FENTANYL. TOLORATING CLEAR LIQUIDS BUT VERY POOR APPITITE. NEED DIET ORDER TOMMORROW. AMIODARONE AT 0.5 MG REMAINS IN AFIB RATE CONTROLLED. DOES HAVE SOME SURFACE CHEST PAIN MAYBE FROM CPR, HURTS WITH HE PUSHES ON IT.
[2020-12-23 19:07] LABS: URINE BILIRUBIN NEGATIVE (Negative); URINE BLOOD 1+ (Negative); URINE CLARITY CLEAR; URINE COLOR YELLOW; URINE GLUCOSE-RANDOM* NEGATIVE (Negative); URINE KETONES NEGATIVE (Negative); URINE LEUKOCYTES-REFLEX NEGATIVE (Negative); URINE NITRITE-REFLEX NEGATIVE (Negative); URINE PROTEIN (DIPSTICK) NEGATIVE (Negative); URINE SPECIFIC GRAVITY 1.025 (1.005-1.035); URINE UROBILINOGEN 0.2 E.U./dl (0.2-1.0)
[2020-12-23 19:18] LABS: CASTS None Seen /LPF (None Seen); MUCUS None Seen strn/LPF (None Seen); SQUAMOUS None Seen /LPF (0-3); URINE RBC None Seen /HPF (NONE SEEN); URINE WBC-REFLEX None Seen /HPF (0-5)
[2020-12-23 19:19] LABS: AMORPHOUS URATES Many /LPF (None Seen); URIC ACID CRYSTALS >10 Many /LPF (None Seen)
[2020-12-24] VITALS (31 sets, daily range): BP systolic 99–143; BP diastolic 44–90
--- NOTE | 2020-12-24 | NUR ---
PT AWAKE AND ALERT SCROTAL DRESSING CHANGE DONE.
[2020-12-24 05:48] LABS: HEMATOCRIT 28.1 % (42.0-52.0); HEMOGLOBIN 9.3 gm/dL (14.0-18.0); MCH 32.4 pg (26.0-34.0); MCHC 33.2 g/dL (28.0-37.0); MCV 97.4 fL (80.0-100.0); RBC 2.88 mil/uL (4.50-6.00); RDW 14.3 % (10.5-14.5); WBC 14.6 thou/uL (4.0-11.0)
--- NOTE | 2020-12-24 06:00 | NUR ---
RESTING QUIETLY. PAIN MED PRN REMAINS IN AFIB RATE 101 EXCELLENT COUGH SMALL AMT OF SPUTUM. AWAKE AND ALERT ORIENTED X 3 800 CC UO THIS SHIFT. PT CONVERSED ALOT VEGA. SPOKE OF HIS 7 HOMES AROUND THE COUNTRY AND PRIVATE JET. WANTS SON TO COME AND SHAVE HIM TODAY REMAINS ON AMIO GTT AT .5 MG PROGRESSING TOWARDS GOALS
[2020-12-24 07:43] LABS: CALCIUM 7.7 mg/dL (8.5-10.1); CREATININE 0.9 mg/dL (0.7-1.3); POTASSIUM 3.9 mmol/L (3.5-5.1)
[2020-12-24 08:18] LABS: BE(vivo) -1.1 mmol/L (-2 to +3); HCO3 22.3 mmol/L (22.0-26.0); PCO2 32.5 mmHg (35.0-45.0); PO2 55.3 mmHg (80.0-100.0); pH 7.454 (7.360-7.450); sO2 90.6 % (92.0-98.0)
[2020-12-24 11:00] LABS: BE(vivo) -0.8 mmol/L (-2 to +3); HCO3 22.2 mmol/L (22.0-26.0); PCO2 31.4 mmHg (35.0-45.0); PO2 112.5 mmHg (80.0-100.0); pH 7.468 (7.360-7.450); sO2 98.4 % (92.0-98.0)
--- NOTE | 2020-12-24 11:31 | NUR ---
PT IS NOT PROGRESSING TOWARDS DISCHARGE AT THIS TIME, AT THE TIME OF RN'S ARRIVAL PT HR WAS ELEVATED 120s (HIGHER THAN THE AVERAGE HR OF 100s DURING NIGHTS PER HS RN) AND O2 SAT IN THE MID/HIGH 80s, RT WAS APPROPERIATELY NOTIFIED, EZPAP AT 20L PROVIDED WITH AVAIL, NOTIFIED, CXR/ABG ORDERED, PT PLACED ON BIPAP, HR IS BETTER AROUND 110s AND O2 around 95-100s. SON MAX WAS AT THE BEDSIDE WELL PT'S AND ANOTHER FAMILY MEMBER. UPDATES PROVIDED AND WAS SEEN TALKING TO THEM WELL. PT CURRENTLY REMAINS UNDER REST POSITION, UROLOGIST HAD SEEN THE PT AND ASSESSED THE SCROTAL WOUND. WELL TEAM, WOUND CHANGE COMPLETE FOR THE DAY. CONTINUING TO MONITOR AND UPDATING NEEDED
--- NOTE | 2020-12-24 19:40 | NUR ---
Pt is in A-fib with RVR , rate 120's- 130's on monitor. Denies of any CP. Starting cardizem gtt per protocol.
[2020-12-25] VITALS (25 sets, daily range): BP systolic 86–116; BP diastolic 48–79
[2020-12-25 04:23] LABS: HEMATOCRIT 28.9 % (42.0-52.0); HEMOGLOBIN 9.5 gm/dL (14.0-18.0); RBC 2.98 mil/uL (4.50-6.00); RDW 14.5 % (10.5-14.5); WBC 13.6 thou/uL (4.0-11.0)
[2020-12-25 04:26] LABS: CALCIUM 7.9 mg/dL (8.5-10.1); CREATININE 0.9 mg/dL (0.7-1.3); POTASSIUM 3.5 mmol/L (3.5-5.1)
--- NOTE | 2020-12-25 06:26 | NUR ---
Pt c/o difficult to take deep breathing this am. O2 sat 87-88% on 5 liters of oxygen. Lung sound diminished all over lung field. Pain med is given prior place him back on BIPAP. He looks much more comfortable at this time. Continue to monitor any changes.
--- NOTE | 2020-12-25 11:50 | HC ---
[facility] [place] [address] CONSULTATION Name: HERO GOODWIN Room #: 249-P ADM IN M.R.#: [id number] Admission: 12/18/20 Attend Phys: Rajesh Becker MD Discharge: Date of : 45 Report #: [id number] THIS REPORT FOR: cc: Daniel Wiley MD, Alexander C. MD Althoff,Clay [place] MD ~ DOC #: [id number] Clay Barriga MD DATE OF SERVICE: 12/20/2020 CHIEF COMPLAINT: Scrotal hematoma. HISTORY OF PRESENT ILLNESS: This is a 75-year-old male patient who apparently was brought to the Emergency Department after collapsing at home. He was found pulseless and apneic, was noted to be in ventricular tachycardia. He was shocked and return of spontaneous respiration occurred. He has been intubated and is in the ICU. He has had a recent hospitalization at [facility] to having undergone a right orchiectomy for a liposarcoma. He is noted to have a scrotal hematoma with some scrotal necrosis and I have been asked to see him with regard to wound care. The patient can provide no information about himself. PAST MEDICAL HISTORY: Positive for hyperlipidemia, paroxysmal atrial fibrillation, chronic diastolic heart failure, coronary artery disease with previous LAD stenting and a right orchiectomy for liposarcoma in 11/2020. FAMILY HISTORY: Unknown. SOCIAL HISTORY: Negative or unknown for alcohol or tobacco use. REVIEW OF SYSTEMS: A 14-point review of systems are unobtainable due to the patient's unresponsiveness and being on a respirator. PHYSICAL EXAMINATION: VITAL SIGNS: At this time include temperature 38.1, pulse 98, respirations 16, blood pressure 131/68. GENERAL: This is a somewhat chronically ill-appearing male patient appears to be in no distress, appears to be sedated. HEENT: Head, normocephalic. Nose is clear. Throat demonstrates orotracheal intubation. NECK: Appears to be supple. LUNGS: Clear. HEART: Regular rhythm. ABDOMEN: Soft, nontender. GENITOURINARY: Demonstrates moderate scrotal swelling. There is an area of focal necrosis on the anterior portion of the scrotum to the right of the midline. [address] [address] CONSULTATION Name: HERO GOODWIN Room #: 249-P ADM IN M.R.#: [id number] Admission: 12/18/20 Attend Phys: Rajesh Becker MD Discharge: Date of : 45 Report #: [id number] EXTREMITIES: Without clubbing or cyanosis. NEUROLOGIC: The patient is sedated. LABORATORY DATA: Include sodium 140, potassium 4.0, chloride 107, CO2 26, BUN 18, creatinine 0.9. White blood cell count 9.2 with a hemoglobin of 9.1. Albumin is 2.2. IMAGING STUDIES: Ultrasound demonstrates what appears to be a fluid collection within the scrotum suggestive of a hematoma. CLINICAL IMPRESSION: 1. Hematoma of the scrotum with some tissue necrosis anteriorly, status post orchiectomy on 12/11/2020. 2. Acute hypoxemic respiratory failure, status post requiring endotracheal intubation and mechanical ventilation, status cardiopulmonary arrest for ventricular tachycardia. 3. Acute metabolic encephalopathy. 4. Anemia. 5. Coronary artery disease. 6. Paroxysmal atrial fibrillation. 7. Congestive heart failure by history. 8. Severe protein-calorie malnutrition with albumin 2.2. RECOMMENDATIONS: At this point in time, I have had discussion with the Urology service. We have discussed the possibility of performing an incision and drainage and debridement at the bedside versus operatively at this point in time, they are going to reassess clinically and therefore no specific intervention has been undertaken at this point in time. Likely, he will require an incision and drainage or debridement. We will continue with pulmonary support and management of other underlying medical issues. He will need aggressive nutritional support to maximize wound healing. I do appreciate being asked to see him in consultation. Clay Barriga MD JRA/DURGA <ELECTRONICALLY SIGNED> By: Clay Barriga MD 12/25/20 1150 0815 1855 Clay Barriga MD /nt
--- NOTE | 2020-12-25 18:49 | NUR ---
PT IS PROGRESSING TOWARDS DISCHARGE, LESS FREQ USE OF BIPAP THIS SHIFT, ONLY 2-3 HOURS, CHANGE IS PT IS ABLE TO MAINTAIN SAT WHILE BEING ON NC ONLY, HR DID EXCEED GREATER THAN 130 AT TIMES, CARDIZEM USED PER ORDER, PT/OT WORK UP PT TODAY, PT HAD A BM, NO COMPLAINTS OF PAIN, ONLY TIME MED USED WAS PRIOR TO SCROTAL DRESSING CHANGE. FAMILY AT BEDSIDE MAJORITY OF THE DAY, PT SEEN BY SLT AND NOW ON DIET AND TOLERATING WELL. PT APPEARS MUCH BETTER THAN YESTERDAY
--- NOTE | 2020-12-25 22:19 | NUR ---
ASSUMED CARE AT 1900. PT REPORTS MILD PAIN IN BOTH CHEST AND SCROTAL AREAS, DECLINE PAIN MEDS AT THIS TIME. AFIB ON TELE W/HR UPPER 90'S, INTO 110-120 WHEN TALKING. AMIO AND CARDIZEM INFUSING. WILL CONTINUE TO MONITOR.
[2020-12-26] VITALS (10 sets, daily range): BP systolic 100–121; BP diastolic 58–90
--- NOTE | 2020-12-26 07:30 | NUR ---
PATIENT CARES WAS ASSUMED AT APPROX 0530 A TRANSFER FROM ICU. PATIENT WAS ASSESSED AND MEDS WERE PASSED. PATIENT HAD NO REQUEST AND WAS MADE COMFORTABLE. ROUNDS WERE DONE. BED ALARM IS ON
--- NOTE | 2020-12-26 12:45 | NUR ---
Case discussed with the care team. Pt now on CCU and now on po amnio. Plans for cardiac cath Thursday. [facility] acute rehab is following and feels he will be a good candidate. They need to check ins as the pt states he has medicare as of 12-20-20. UR/admitting notified and will verify. Will follow.
--- NOTE | 2020-12-26 22:56 | NUR ---
ASSUMED CARE OF PT AT 1900, PT WAS A/O X4 TALKING TO FAMILY AT THE BEDSIDE. PT WAS APPROPRIATE WHEN SPEAKING WITH STAFF, NO SIGNS OF DISTRESS NOTED. PT DENIED PAIN AT THIS TIME. 2030 UPON ENTERING THE , PT IS SETTING ON SIDE OF THE BED WERE HE URINATED ON HIMSELF. THE PT WAS DIAPHORETIC AND LETHARGIC WITH NA HOLDING PT UPRIGHT ON THE BED. THIS NURSE LAYED PT ONTO THE BED, PT WAS INCOHERENT BUT ABLE TO ANSWER YES/ NO QUESTIONS. PT HAD A WEAK PULSE AND SHALLOW RESPIRATIONS,EKG AND VS OBTAINDED AT THIS TIME AND RAPID RESPONSE WAS CALLED AT 2039. CARDIOLOGY WAS CONSULTED ORDERS FOR DOPAMINE RECIEVED AND INITIATED PT TRANSFERED TO ICU WITH ALL BELONGINGS, FAMILY NOTIFIED.
[2020-12-27 00:53] VITALS: BP 121/74
--- NOTE | 2020-12-27 04:22 | NUR ---
ASSUMED CARE OF PT AT 1900, PT IS A/O X4 ON 5L NC, WITH BIPAP PRN. ASSESSMENT COMPLETED NOTED IN CHART. IS COMPLETED 1000 MLS X 10 BREATHS. PT C/O STERNAL PAIN, WITH IS ALEVEATED WITH MEDICATION. PT CONTINUES TO SPLING WITH COUGH. WOUND CARE COMPLETED PER POC, PT TOLERATED WELL. COCHRAN CATH REMAINS IN PLACE AND FUNCTIONING WELL. WILL CONTINUE TO WORK TOWARDS POC DURING THIS ADMISSOIN. FALL PRECAUTIONS IN PLACE, CALL LIGHT WITHIN REACH. PT DENIES NEEDS AT THIS TIME.
[2020-12-27 05:07] VITALS: BP 121/81
[2020-12-27 08:53] VITALS: BP 118/71
--- NOTE | 2020-12-27 10:13 | NUR ---
WOUND CARE F/U; THE PATIENT TOLERATED THE DRESSING CHANGE WELL. NO ODOR. TENDERNESS IS MUCH LESS. PACKED THE WOUND BASE WITH XEROFORM GAUZE X2 WITH SILV/MORPHINE CREAM, 1" NS MOIST KERLIX,ABD, FOAM TAPE. RN PRESENT.
--- NOTE | 2020-12-27 11:03 | NUR ---
DISCUSSED WITH UROLOGY NURSE PRACTITIONER REGARDING NEED FOR COCHRAN CATHETER. WILL KEEP URINARY CATHETER IN PLACE FOR NOW UNTIL PATIENT INCREASES MOBILITY TO VOID AND FOR SCROTAL WOUND SITE HEALING. INFORMATION RELAYED TO INFECTION CONROL ENRIQUETA Echeverria
[2020-12-27 12:14] VITALS: BP 107/66
[2020-12-27 14:48] LABS: HEMATOCRIT 31.3 % (42.0-52.0); HEMOGLOBIN 10.2 gm/dL (14.0-18.0); MCH 31.5 pg (26.0-34.0); MCHC 32.7 g/dL (28.0-37.0); MCV 96.2 fL (80.0-100.0); RBC 3.26 mil/uL (4.50-6.00); RDW 14.6 % (10.5-14.5); WBC 10.8 thou/uL (4.0-11.0)
[2020-12-27 15:07] LABS: CALCIUM 8.1 mg/dL (8.5-10.1); CREATININE 1.2 mg/dL (0.7-1.3); MAGNESIUM 2.1 mg/dL (1.8-2.4); POTASSIUM 4.6 mmol/L (3.5-5.1)
[2020-12-27 16:46] VITALS: BP 110/73
[2020-12-27 19:54] VITALS: BP 123/77
[2020-12-28 01:29] VITALS: BP 125/82
[2020-12-28 04:14] VITALS: BP 114/72
--- NOTE | 2020-12-28 06:30 | NUR ---
assessments as charted, pain meds given with relief, meds given as per aug, wound care completed, pt tolerated well, remains npo for cath this morning, no needs at this time, will pass on report
--- NOTE | 2020-12-28 08:51 | P ---
[facility] [place] [address] PROCEDURE REPORT Name: HERO GOODWIN Room #: 214-P ADM IN M.R.#: [id number] Admission: 12/18/20 Attend Phys: Rajesh Becker MD Discharge: Date of : 45 Report #: [id number] THIS REPORT FOR: cc: Daniel Wiley MD, Alexander C. MD Stephens, Thad A. MD ~ DOC #: [id number] cc: Chu Kolb MD DATE OF SERVICE: 12/21/2020 WOUND CARE PROCEDURE PERSONAL PHYSICIAN: Dr. Rajesh Becker CHIEF COMPLAINT: Right scrotal hematoma. 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 The patient unfortunately has developed a right scrotal hematoma with tissue necrosis requiring evacuation of the hematoma. I reviewed this with Dr. Abdirizak Sinclair. The plan will be to do this at bedside given the fact the patient had a recent cardiac arrest and is somewhat medically unstable. This procedure can be easily performed at bedside. He is in agreement with this as well. I have also spoken to the family. Consent has been obtained. Timeout was taken. PREPROCEDURE DIAGNOSIS: Right scrotal hematoma with tissue necrosis. POSTPROCEDURE DIAGNOSIS: Right scrotal hematoma with tissue necrosis. PREPROCEDURE MEASUREMENTS: 5.1 x 4.3 cm of tissue necrosis. POSTPROCEDURE MEASUREMENTS: 5.1 x 4.3 x 4.8 cm. PROCEDURE IN DETAIL: After timeout was taken, consent was obtained from the family. The patient had excisional opening of the necrotic tissue using a 10 blade and forceps after 1% lidocaine with epinephrine was instilled x5 mL. Once the necrotic tissue had been excised, copious amount of coagulated blood was extracted manually and then using Yankauer suction and 250 mL of normal saline, the scrotum was continually drained of any further hematoma. There were no signs of active bleeding. The hematoma was lined with Xeroform and then loosely packed with saline moist gauze. The plan was to continue with the Xeroform at the base of the wound and then start morphine, Silvadene moist packing twice daily, covered with an ABD. The patient tolerated the procedure well. Given [address] [address] PROCEDURE REPORT Name: HERO GOODWIN Room #: 214-P [facility] IN M.R.#: [id number] Admission: 12/18/20 Attend Phys: Rajesh Becker MD Discharge: Date of : 45 Report #: [id number] the fact that he was intubated and sedated. Once again, blood loss was essentially minimal except for what was the obvious hematoma. Post-procedure, I reviewed this with Dr. Sinclair. IMPRESSION: Evacuation of right scrotal hematoma in a patient status post right inguinal radical orchiectomy secondary to right spermatic cord liposarcoma. PLAN: Once again described above. We will place morphine, Silvadene, line Xeroform within the right scrotum. Cover this with saline moistened gauze and ABD and do this twice daily. I spoke to the family post-procedure and explained the procedure and how well the patient had done. MD ALEXIA Peres/JORGE <ELECTRONICALLY SIGNED> By: Donn Kolb MD 12/28/20 0851 [id number] 0018 Donn Kolb MD /cherise
[2020-12-28 09:00] VITALS: BP 94/62
--- NOTE | 2020-12-28 09:23 | CATHLAB ---
[facility] [place] [address] INVASIVE PROCEDURE REPORT Name: HERO GOODWIN Room #: 214-P ADM IN M.R.#: [id number] Admission: 12/18/20 Attend Phys: Rajesh Becker MD Discharge: Date of : 45 Report #: [id number] THIS REPORT FOR: cc: Daniel Wiley MD, Alexander C. MD Lundgren, Craig H. MD [facility] ~ APPROVED REPORT Study performed: 12/28/2020 07:34:53 Patient Details Patient Status: In-Patient Room #: The patient is a 75 year-old male Event Personnel Mariano Cool Analytics Specialist, Kaylene Elias RT(R)() Monitor, Landry Lemus RN RN, Kristi Salmeron RTR Scrub Procedures Performed Art Access - L femoral artery* Left Heart Cath w/or w/o Coronaries 1350090 C Hemostasis w/ Mynx 20095 Initial Mod Sed Same Phys/QHP Gr5y 229187 Procedure Narrative The patient was brought electively to the Cardiac Catheterization Laboratory and was prepped and draped in a sterile manner. The Left Groin^ was infiltrated with 1% Lidocaine subcutaneous anesthesia. A PINNACLE 6FR Sheath #[id number] sheath was inserted into the LFA 6F^. Coronary angiography was performed using coronary diagnostic catheters. The right coronary system was accessed and visualized with a JR4 catheter. The left coronary system was accessed and visualized with a JL4 catheter. The left ventricle was accessed and visualized with a PIGTAIL catheter. The patient tolerated the procedure well and there were no complications associated with the procedure. There was no hematoma. Intraoperative Conscious Sedation Fentanyl 50 mcg Versed 1 mg Fluoro Time: 4.50 minutes Dose: DAP 8106.00 cGycm2 Contrast Type and Amount: Visipaque 100 ml Coronary Angiography [facility] [address] [place] [address] INVASIVE PROCEDURE REPORT Name: HERO GOODWIN Room #: 214-P [facility] IN .R.#: [id number] Admission: 12/18/20 Attend Phys: Rajesh Becker MD Discharge: Date of : 45 Report #: [id number] The patient's coronary anatomy is right dominant. Diagnostic Cath Left Main Normal left main LAD Widely patent mid LAD stent with mild 10-20% intrastent plaquing 40-50% proximal LAD stenosis Circumflex Small nondominant circumflex comprised of a single moderate sized bifurcating marginal branch OM1 Normal OM1 Right Coronary Dominant right coronary, angiographically normal R PDA Normal posterior descending RPLV Minimal plaquing in a large posterior lateral branch Left Ventriculography The left ventricle is normal in size with normal contractility. The left ventricular ejection fraction is estimated to be 60-65%. Left ventricular wall motion abnormalities are present. There is moderate mitral insufficiency. Minimal apical hypokinesis Hemodynamics The aortic pressure is 105/63 mmHg with a mean of 92 mmHg. The left ventricular pressure is 122/8 mmHg with a mean of mmHg. The left ventricular end diastolic pressure is 19 mmHg. Conclusion 1. Normal global left ventricular systolic function with minimal apical hypokinesis. EF 65%. Moderate mitral regurgitation 2. Normal left main 3. Moderate 40-50% proximal LAD stenosis, proximal to a widely patent mid LAD stent 4. Small, nondominant and angiographically normal circumflex 5. Dominant, angiographically normal right coronary <ELECTRONICALLY SIGNED> By: Mariano Cool MD, FACC 12/28/20922 2 2 Mariano Cool MD, FACC /INF
--- NOTE | 2020-12-28 13:21 | NUR ---
PATIENT HAS BEEN ACCEPTED FOR ACUTE REHAB ADMISSION TO . PER HOSPITALIST, PATIENT MAY BE READY FOR ADMISSION TO REHAB OVER WEEKEND. POWER CLEANER OPERATOR CONTACT NUMBER IS [phone]. WILL CONTINUE TO FOLLOW.
[2020-12-28 15:00] VITALS: BP 126/69
--- NOTE | 2020-12-28 15:13 | NUR ---
Pt is medicare primary as of 12-20-20. Confirmed with UR/[facility] and pt. [facility] can accept the pt and will have a bed on Thursday pending cardiac clearance. Possible difibulator placement being discussed. This would need to be done prior to dc to rehab. Case discussed with the attending and the care team. Pt updated and agreeable. He is motivated to start his rehab program and will be seen by therapy over the weekend. He will updated his family. Pt remains on o2. Will follow.
[2020-12-28 20:53] VITALS: BP 130/80
[2020-12-29 05:13] VITALS: BP 95/66
--- NOTE | 2020-12-29 06:35 | NUR ---
ASSUMED CARE AT 1900. COMPLETED DRESSING CHANGE TO SCROTAL WOUND. PT CONTINUES TO C/O CHEST PAIN/SORENESS AND THIS MORNING REPORTED IT WAS MORE ON THE LEFT SIDE. OBTAINED ORDER FOR HYDROCODONE TO START DECREASING USE OF IVP FENTANYL. RT PLACED ON 2L O2 OVERNIGHT. NO OTHER CONCERNS, WILL CONTINUE TO MONITOR.
[2020-12-29 08:15] VITALS: BP 117/63
[2020-12-29 12:44] VITALS: BP 113/71
[2020-12-29 16:18] VITALS: BP 108/49
--- NOTE | 2020-12-29 18:14 | NUR ---
PT UP TO BATHROOM AND COCHRAN REMIANS IN PLACE. DRESSING CHANGED RIGHT SCROTUM AND REINFORCED. PT MEDICATED FOR PAIN TODAY AND PT TAKING IN GOOD PO. WILLCONTINUE TO ASSESS.
[2020-12-29 20:06] VITALS: BP 133/78
[2020-12-30 04:15] VITALS: BP 132/72
[2020-12-30 08:30] VITALS: BP 99/61
[2020-12-30 12:06] VITALS: BP 102/67
[2020-12-30 15:40] VITALS: BP 109/73
--- NOTE | 2020-12-30 16:59 | NUR ---
PATIENT PROGRESSING TOWARDS THE PLAN OF CARE. NO NEW INCREASED O2 REQUIREMENTS AND NO NEW COMPLAINTS OF PAIN/DISCOMFORT. VISITED IN THE AM.
[2020-12-30 20:37] VITALS: BP 135/76
[2020-12-31 05:35] VITALS: BP 125/76
--- NOTE | 2020-12-31 07:56 | NUR ---
ASSESSMENTS CHARTED, MEDS CHARTED GIVEN. PATIENT RESTING IN BED DURING SHIFT. SCROTAL DRESSING CHANGED. PAIN MEDS GIVEN BEFORE DRESSING CHANGE THEN NEEDED DURING NIGHT. ON ISOLATION PRECAUTIIONS FOR ESBL IN WOUND. COCHRAN IN PLACE. PLAN OF CARE IS TO POSSIBLY HAVE ICD PLACEMENT THEN GO TO [facility] AT A LATER DATE, OR GO TO [facility] TODAY AND DELAY ICD PLACEMENT. FALL PRECAUTIONS IN PLACE DURING SHIFT.
[2020-12-31 09:16] VITALS: BP 105/67
[2020-12-31 11:59] LABS: ABSOLUTE NEUTROPHILS 18.2 thou/uL (1.4-8.2); BASOPHILS 0.2 % (0.0-2.0); EOSINOPHILS 0.3 % (0.0-3.0); HEMOGLOBIN 11.1 gm/dL (14.0-18.0); LYMPHOCYTES 2.4 % (24.0-44.0); MCH 31.5 pg (26.0-34.0); MCHC 32.6 g/dL (28.0-37.0); MCV 96.6 fL (80.0-100.0); MONOCYTES 5.1 % (1.0-8.0); PLATELET COUNT 288 thou/uL (150-400); RBC 3.52 mil/uL (4.50-6.00); WBC 19.8 thou/uL (4.0-11.0)
[2020-12-31 12:05] LABS: CALCIUM 8.1 mg/dL (8.5-10.1); POTASSIUM 3.6 mmol/L (3.5-5.1)
[2020-12-31 12:29] VITALS: BP 144/82
--- NOTE | 2020-12-31 17:03 | NUR ---
PT RESTING COMFORTABLY. AFEBRILE, ADEQUATE UOP, NO BM, APPROPRIATE APPETITE. PT TO CAMP COOK FOR AICD PLACEMENT. PT RECOVERED AND BACK IN CCU. VSS STABLE. C/O MODERATE AMOUNT OF PAIN. COCHRAN BAG REPLACED DUE TO PACU BREAKING BAG. ALL MOBILITY AND POSITIONING PRECAUTIONS IN PLACE AND PT EDUCATED ABOUT THESE. PT AND FAMILY HAVE BEEN THOUROUGHLY UPDATED AND EDUCATED ON PT CONDITION AND POC. PT PROGRESSING TO POC. WOUND CARE COMPLETED BY WOUND CARE TEAM.
[2020-12-31 20:11] VITALS: BP 115/63
[2021-01-01 00:17] VITALS: BP 142/71
[2021-01-01 04:00] VITALS: BP 115/70
[2021-01-01 08:00] VITALS: BP 125/74
[2021-01-01] MEDS ORDERED: AMOX TR-K CLV1 EAC4 PO (11:00)
[2021-01-01] MEDS ORDERED: PACERONE 200 M200 M1 PO (11:00)
[2021-01-01] MEDS ORDERED: PROTONIX 20 MG20 M1 PO (11:00)
[2021-01-01] MEDS ORDERED: METOPROLOL TART25 MG PO (11:00)
[2021-01-01] MEDS ORDERED: IPRAT-ALBUT 0.5-3 ML INH (11:00)
[2021-01-01] MEDS ORDERED: LASIX 20 MG TAB20 MG PO (11:00)
--- NOTE | 2021-01-01 11:45 | NUR ---
Dc to acute rehab [facility] at dc. Beside nurse to call report to [phone].
[2021-01-01 12:52] VITALS: BP 90/60
[2021-01-01 16:55] VITALS: BP 101/70
[2021-01-01 20:15] VITALS: BP 135/78
[2021-01-02 05:10] VITALS: BP 129/71
[2021-01-02 07:15] VITALS: BP 122/62
--- NOTE | 2021-01-02 09:08 | NUR ---
VAT SPOKE TO SOLA ROBISON TO GET ORDER TO DC PICC PRIOR TO TRANSFER TO REHAB
[2021-01-02 11:20] VITALS: BP 117/70
[2021-01-02] MEDS ORDERED: TYLENOL325 MG PO (16:26)
[2021-01-02] MEDS ORDERED: DIGOXIN250 MCG PO (16:26)
[2021-01-02] MEDS ORDERED: PREDNISONE 20 M20 M1 PO (16:26)
[2021-01-02] MEDS ORDERED: ASPIRIN325 PO (16:26)
--- NOTE | 2021-01-02 16:28 | NUR ---
ASSESSMENT CHARTED - MEDS PER RADHA RALPH DIET AND FLUIDS. UP TO THE CHAIR FOR LUNCH WITH PHYS THERAPY ASSIST - PT ANBULATED TO THE BATHROOM - DRESSING TO SCROTUM CHANGED ORDERED. INSCISION TO LEFT UPEER CHEST FROM PACER PLACEMENT C/D/I. INCISION TO R INGUINAL AREA FROM SSURGERY C/D/I. PT TO GO TO REHAB THIS AFTERNOON WHEN BED AVIALABLE. PT SLEEPING AT THE PRESENT TIME WITH [employer]
--- NOTE | 2021-01-02 16:36 | NUR ---
Patient accepted to [facility] plan transfer today.
--- NOTE | 2021-01-06 19:42 | EEG ---
[facility] [place] [address] ELECTROENCEPHALOGRAM Name: HERO GOODWIN Room #: 214-P [facility] IN M.R.#: [id number] Admission: 12/18/20 Attend Phys: Rajesh Becker MD Discharge: 01/02/21 Date of : 45 Report #: [id number] THIS REPORT FOR: //name// DOC #: [id number] Wilbert Peace MD DATE OF SERVICE: 12/20/2020 This patient is being evaluated for cardiac arrest. EEG was done by placing the electrode by standard 10-20 system of electrode placement. Both referential and sequential montages were used for recording. Background activity in this patient's EEG does appear to be up to 7-8 Hz. Photic stimulation is unremarkable. Throughout the record, no active epileptiform activity was noticed. IMPRESSION: Moderately abnormal EEG because it is intermixed with theta range slowing on both sides. That is a nonspecific abnormality which can occur with encephalopathy, effect of psychotropic medication, dementia. Well defined cortical activity is present and no seizure activity was noticed. Thank you very much for this referral. Wilbert Peace MD PK/CHI <ELECTRONICALLY SIGNED> By: Wilbert Peace MD 01/06/21 1942 [id number] Wilbert Peace MD /nt
--- NOTE | 2021-01-06 19:42 | HC ---
[facility] [place] [address] CONSULTATION Name: HERO GOODWIN Room #: 214-P [facility] IN M.R.#: [id number] Admission: 12/18/20 Attend Phys: Rajesh Becker MD Discharge: 01/02/21 Date of : 45 Report #: [id number] THIS REPORT FOR: cc: Daniel Wiley MD, Alexander C. 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 This patient had a cardiac arrest at home and looks like he was resuscitated fairly fast. He was in the hospital because of a liposarcoma and then had this cardiac arrest. He underwent a CT scan of the head in the emergency room and that was unremarkable. The nurses tell me that he tries to wake up when propofol is taken off. REVIEW OF SYSTEMS: Positive for some hypertension, scrotal carcinoma. He had coronary artery disease, but to the best of their knowledge of the patient's , he did not have any stroke in the past, he was functional and according to her, he was working. He had some orthostatic hypotension. He had some shortness of breath. Review of systems according to the is mostly unremarkable. PAST MEDICAL HISTORY: According to her is negative for any stroke. FAMILY HISTORY: Negative for early age stroke the best the can tell. She says she is not a good nurse and she does not remember the history altogether. SOCIAL HISTORY: He drinks very rarely. PHYSICAL EXAMINATION: The patient's examination was limited because of propofol, but it looks like the patient wakes up and then to follow commands. I cannot be very certain because he does not do it persistently. Rest of the cranial nerve examination and neuromuscular examination was attempted, but it was not possible to carry out because of limited cooperation. His pupil does look equal. There is no meningeal sign, is a well-built individual. His blood pressure was somewhat low on 90/50 and pulse is 62. LABORATORY DATA: White count is 12.2. He is intubated. He appeared to be stable, otherwise, his CT scan of the head was reviewed that showed no acute changes. IMPRESSION: The patient does appear to have a cardiac arrest, but if he is waking up not early that is an optimistic sign, but I think we can evaluate him further only after he is off the propofol and we will do that. He has also had [facility] [address] [place] [address] CONSULTATION Name: HERO GOODWIN Room #: 214-P [facility] IN M.R.#: [id number] Admission: 12/18/20 Attend Phys: Rajesh Becker MD Discharge: 01/02/21 Date of : 45 Report #: [id number] multiple cardiac issues in the past including paroxysmal atrial fibrillation and I will defer any further evaluation and management to cardiology. He will probably need some more workup, but only when he stabilizes. Thank you very much for this referral and I talked to the nurses and I discussed this patient with the in detail. MD NEHEMIAH Zafar/JORGE <ELECTRONICALLY SIGNED> By: Wilbert Peace MD 01/06/21 1942 [id number] Wilbert Peace MD /nt
== END 2021-01-02 17:47 | DRG 853 ==
LOC: ER 17:34 → EROBS 18:33 → 2N 18:33 → ICU 18:33 → 2N 12-26 05:09
PROVIDERS: Emergency Medicine Emergency Medical Services; Internal Medicine; Internal Medicine Cardiovascular Disease; Internal Medicine Pulmonary Disease; Nurse Practitioner; Nurse Practitioner Family; Pediatrics; Physician Assistant; ADMIT Internal Medicine; ATTEND Internal Medicine
PROC: 5A1945Z Respiratory Ventilation, 24-96 Consecutive Hours (ICD-10-PCS; principal; 2020-12-18)
PROC: 5A12012 Performance of Cardiac Output, Single, Manual (ICD-10-PCS; principal; 2020-12-18)
PROC: 0BH17EZ Insertion of Endotracheal Airway into Trachea, Via Natural or Artificial Opening (ICD-10-PCS; principal; 2020-12-18)
PROC: 0V950ZZ Drainage of Scrotum, Open Approach (ICD-10-PCS; 2020-12-21)
PROC: 02HV33Z Insertion of Infusion Device into Superior Vena Cava, Percutaneous Approach (ICD-10-PCS; 2020-12-21)
PROC: 5A09357 Assistance with Respiratory Ventilation, Less than 24 Consecutive Hours, Continuous Positive Airway Pressure (ICD-10-PCS; 2020-12-24)
PROC: 5A09357 Assistance with Respiratory Ventilation, Less than 24 Consecutive Hours, Continuous Positive Airway Pressure (ICD-10-PCS; 2020-12-25)
PROC: 5A09357 Assistance with Respiratory Ventilation, Less than 24 Consecutive Hours, Continuous Positive Airway Pressure (ICD-10-PCS; 2020-12-26)
PROC: 5A09357 Assistance with Respiratory Ventilation, Less than 24 Consecutive Hours, Continuous Positive Airway Pressure (ICD-10-PCS; 2020-12-27)
PROC: 5A09357 Assistance with Respiratory Ventilation, Less than 24 Consecutive Hours, Continuous Positive Airway Pressure (ICD-10-PCS; 2020-12-28)
PROC: B211YZZ Fluoroscopy of Multiple Coronary Arteries using Other Contrast (ICD-10-PCS; 2020-12-28)
PROC: B215YZZ Fluoroscopy of Left Heart using Other Contrast (ICD-10-PCS; 2020-12-28)
PROC: 4A023N7 Measurement of Cardiac Sampling and Pressure, Left Heart, Percutaneous Approach (ICD-10-PCS; 2020-12-28)
PROC: 0JH609Z Insertion of Cardiac Resynchronization Defibrillator Pulse Generator into Chest Subcutaneous Tissue and Fascia, Open Approach (ICD-10-PCS; 2020-12-31)
PROC: 02HK3KZ Insertion of Defibrillator Lead into Right Ventricle, Percutaneous Approach (ICD-10-PCS; 2020-12-31)
PROC: 02H63KZ Insertion of Defibrillator Lead into Right Atrium, Percutaneous Approach (ICD-10-PCS; 2020-12-31)
PROC: B51 Imaging, Veins, Fluoroscopy (ICD-10-PCS; 2020-12-31)
DX: A41.9 Sepsis, unspecified organism (principal); I46.9 Cardiac arrest, cause unspecified; J96.01 Acute respiratory failure with hypoxia; I21.4 Non-ST elevation (NSTEMI) myocardial infarction; E43 Unspecified severe protein-calorie malnutrition; G92 Toxic encephalopathy; I50.33 Acute on chronic diastolic (congestive) heart failure; J15.5 Pneumonia due to Escherichia coli; D68.59 Other primary thrombophilia; C49.9 Malignant neoplasm of connective and soft tissue, unspecified; D62 Acute posthemorrhagic anemia; I48.0 Paroxysmal atrial fibrillation; E78.5 Hyperlipidemia, unspecified; I25.10 Atherosclerotic heart disease of native coronary artery without angina pectoris; S30.22XA Contusion of scrotum and testes, initial encounter; I95.1 Orthostatic hypotension; N50.89 Other specified disorders of the male genital organs; R53.81 Other malaise; T38.0X5A Adverse effect of glucocorticoids and synthetic analogues, initial encounter; R73.9 Hyperglycemia, unspecified; Z20.822 Contact with and (suspected) exposure to COVID-19; Z95.5 Presence of coronary angioplasty implant and graft; X58.XXXA Exposure to other specified factors, initial encounter; Y93.89 Activity, other specified; Y92.89 Other specified places as the place of occurrence of the external cause; Y99.8 Other external cause status; Z68.25 Body mass index [BMI] 25.0-25.9, adult